=== PATIENT | female | born 1950 | race African-American/Black ===

== ENCOUNTER 2022-10-22 19:51 | Inpatient (IN) | payer BC, OTHER ==
[~2022-10-22] VITALS: Ht 175.3 cm; Wt 88.0 kg
[2022-10-22] MEDS ORDERED: MORPHINE SULFATE INJ 2 MG/ML DISP.SYRIN ONE (21:50)
[2022-10-22] MEDS ORDERED: MORPHINE SULFATE INJ 2 MG/ML DISP.SYRIN IV ONE (22:00)
[2022-10-22] MEDS ORDERED: IV NS 0.9% 1,000 ML BAG IV ONE (22:00)
[2022-10-22 22:20] LABS: BASOPHILS % (AUTO) 0.8 % (0.0-2.0); EOSINOPHILS # (AUTO) 0.1 K/uL (0.0-0.7); EOSINOPHILS % (AUTO) 2.3 % (0.0-6.0); HEMATOCRIT 32 % (33-45); HEMOGLOBIN 10.5 g/dL (11.5-14.8); LYMPHOCYTES # (AUTO) 0.6 K/uL (0.8-4.8); LYMPHOCYTES % (AUTO) 10.4 % (20.0-44.0); MEAN CORPUSCULAR HEMOGLOBIN 32 PG (26.0-33.0); MEAN CORPUSCULAR HGB CONC 33 g/dl (31.0-36.0); MEAN CORPUSCULAR VOLUME 97 fL (82-100); MONOCYTES # (AUTO) 0.5 K/uL (0.1-1.30); MONOCYTES % (AUTO) 9.6 % (2.0-12.0); NEUTROPHILS # (AUTO) 4.3 K/uL (1.8-8.9); NEUTROPHILS % (AUTO) 76.9 % (43.0-81.0); PLATELET COUNT (AUTO) 124 K/uL (150-450); RED BLOOD CELL COUNT(AUTO) 3.32 MIL/uL (4.0-5.2); RED CELL DISTRIBUTION WIDTH 17.8 % (11.5-15.0); WHITE BLOOD COUNT (AUTO) 5.6 K/uL (4.3-11.0)
[2022-10-22 22:32] LABS: CALCIUM, SERUM 8.5 mg/dL (8.5-10.1); CREATININE 0.8 mg/dL (0.6-1.3); POTASSIUM 3.9 mmol/L (3.5-5.1)
[2022-10-22 22:58] LABS: INR 1.24 (0.91-1.10); PARTIAL THROMBOPLASTIN TIME 25.1 SEC (24.3-34.3); PROTHROMBIN TIME 12.9 SECS (9.2-11.1)
[2022-10-22 23:13] LABS: APPEARANCE,URINE TURBID (CLEAR); BILIRUBIN,URINE 1+ (NEGATIVE); BLOOD, URINE TRACE-INTA Ery/uL (NEGATIVE); COLOR,URINE DARK YELLOW (YELLOW); KETONES,URINE 1+ mg/dL (NEGATIVE); LEUKOCYTE ESTERASE ,URINE 3+ (NEGATIVE); NITRITE, URINE POSITIVE (NEGATIVE); PH,URINE 7.5 (5.0-8.0); PROTEIN,URINE TRACE mg/dl (NEGATIVE); UGLUCOSE NEGATIVE (NEGATIVE); UROBILINOGEN,URINE >=8.0 EU/dL (0.2)
[2022-10-22 23:23] LABS: ADD URINE CULTURE YES; BACTERIA,URINE Moderate /HPF (None Seen); SQUAMOUS EPITHELIAL CELL,UR Rare /HPF (None Seen); WBC,URINE 51-80 /HPF (0-3)
[2022-10-23] MEDS ORDERED: CEFTRIAXONE 1GM BAG (ER ONLY) 1 GM/50 ML PIGGYBACK IV ONE
[2022-10-23] MEDS ORDERED: ZOLPIDEM TARTRATE 5 MG TABLET PO PRN (01:00)
[2022-10-23] MEDS ORDERED: Z GUARD REMEDY 4 OZ OINT TP PRN (01:00)
[2022-10-23] MEDS ORDERED: HYDROCODONE/APAP 10/325MG TABLET PO PRN (01:00)
[2022-10-23] MEDS ORDERED: MAG HYDROX/AL HYDROX/SIMETH 30 ML UDC PO PRN (01:00)
[2022-10-23] MEDS ORDERED: ONDANSETRON HCL/PF 4 MG/2 ML VIAL IVP PRN (01:00)
[2022-10-23] MEDS ORDERED: MAGNESIUM HYDROXIDE 30 ML UDC PO PRN (01:00)
[2022-10-23 03:00] VITALS: BP 115/61; TEMP 98.7; O2SAT 96
[2022-10-23] MEDS: IV NS 0.9% 1,000 ML IV PRN ×2 (03:28→14:38)
[2022-10-23] MEDS: MORPHINE SULFATE INJ 2 MG/ML DISP.SYRIN IV PRN ×4 (03:54→23:16)
[2022-10-23] MEDS ORDERED: LORA-259 PO (05:45)
[2022-10-23] MEDS ORDERED: DULO30CA2 PO (05:45)
[2022-10-23 08:00] VITALS: BP 137/78; TEMP 99.8; O2SAT 97
[2022-10-23] MEDS ORDERED: ESOM20CA37 PO (08:24)
[2022-10-23] MEDS ORDERED: TRAZ-252 PO (08:24)
[2022-10-23 10:42] LABS: IRON, SERUM 26 ug/dl (50-175); TOTAL IRON BINDING CAPACITY 291 ug/dl (250-450)
[2022-10-23] MEDS: DAKINS QUARTER STRENGTH (0.125%) 480 ML BOTTLE TOP SCH (10:55)
[2022-10-23] MEDS ORDERED: TRAZODONE 50 MG TABLET PO PRN (17:00)
[2022-10-23] MEDS ORDERED: LORAZEPAM 1 MG TABLET PO PRN (17:00)
[2022-10-23] MEDS ORDERED: MORPHINE SULFATE INJ 2 MG/ML DISP.SYRIN IV STA (17:36)
[2022-10-23 18:25] LABS: BASOPHILS % (AUTO) 0.7 % (0.0-2.0); EOSINOPHILS # (AUTO) 0.2 K/uL (0.0-0.7); EOSINOPHILS % (AUTO) 5.1 % (0.0-6.0); HEMATOCRIT 30 % (33-45); HEMOGLOBIN 9.8 g/dL (11.5-14.8); LYMPHOCYTES # (AUTO) 0.7 K/uL (0.8-4.8); LYMPHOCYTES % (AUTO) 15.5 % (20.0-44.0); MEAN CORPUSCULAR HEMOGLOBIN 32 PG (26.0-33.0); MEAN CORPUSCULAR HGB CONC 33 g/dl (31.0-36.0); MEAN CORPUSCULAR VOLUME 98 fL (82-100); MONOCYTES # (AUTO) 0.5 K/uL (0.1-1.30); MONOCYTES % (AUTO) 11.4 % (2.0-12.0); NEUTROPHILS % (AUTO) 67.3 % (43.0-81.0); PLATELET COUNT (AUTO) 112 K/uL (150-450); RED BLOOD CELL COUNT(AUTO) 3.08 MIL/uL (4.0-5.2); RED CELL DISTRIBUTION WIDTH 17.6 % (11.5-15.0); WHITE BLOOD COUNT (AUTO) 4.5 K/uL (4.3-11.0)
[2022-10-23 19:08] LABS: CALCIUM, SERUM 7.8 mg/dL (8.5-10.1); CREATININE 0.7 mg/dL (0.6-1.3); POTASSIUM 3.7 mmol/L (3.5-5.1)
[2022-10-23 19:22] LABS: THYROID STIMULATING HORMONE 3.231 uIU/mL (0.358-3.74)
[2022-10-23 20:00] VITALS: BP 118/95; TEMP 98.3; O2SAT 96
[2022-10-23 21:00] VITALS: BP 121/96; O2SAT 95
[2022-10-23] MEDS ORDERED: METOPROLOL TARTRATE INJ 5 MG/5 ML AMPUL IVP PRN (21:00)
[2022-10-23] MEDS: ENOXAPARIN SODIUM 40 MG/0.4 ML DISP.SYRIN SQ SCH (21:25)
[2022-10-23 22:00] VITALS: BP 131/99; O2SAT 94
[2022-10-23] MEDS ORDERED: METOPROLOL TARTRATE INJ 5 MG/5 ML AMPUL IVP ONE (22:00)
[2022-10-23 23:00] VITALS: BP 128/102; O2SAT 91
[2022-10-23] MEDS: CEFTRIAXONE 1 G in IV D5W 50 ML IV SCH (23:08)
[2022-10-23] MEDS ORDERED: AMIODARONE 150 MG/3 ML VIAL IV ONE ×2 (23:17→23:18)
[2022-10-23] MEDS ORDERED: AMIODARONE 150 MG in IV D5W 100 ML IV ONE (23:30)
[2022-10-23] MEDS: AMIODARONE 450 MG in IV D5W 241 ML IV PRN (23:33)
[2022-10-24] VITALS (19 sets, daily range): BP systolic 95–138; BP diastolic 70–92; TEMP 98–98.9; O2SAT 93–99
[2022-10-24] MEDS: IV NS 0.9% 1,000 ML IV PRN ×2 (03:05→18:23)
[2022-10-24] MEDS: MORPHINE SULFATE INJ 2 MG/ML DISP.SYRIN IV PRN ×5 (04:11→22:45)
[2022-10-24 04:22] LABS: BASOPHILS % (AUTO) 0.9 % (0.0-2.0); EOSINOPHILS # (AUTO) 0.2 K/uL (0.0-0.7); HEMATOCRIT 30 % (33-45); HEMOGLOBIN 9.8 g/dL (11.5-14.8); LYMPHOCYTES # (AUTO) 0.7 K/uL (0.8-4.8); MEAN CORPUSCULAR HEMOGLOBIN 32 PG (26.0-33.0); MEAN CORPUSCULAR HGB CONC 32 g/dl (31.0-36.0); MEAN CORPUSCULAR VOLUME 97 fL (82-100); MONOCYTES # (AUTO) 0.5 K/uL (0.1-1.30); MONOCYTES % (AUTO) 11.3 % (2.0-12.0); NEUTROPHILS # (AUTO) 2.9 K/uL (1.8-8.9); NEUTROPHILS % (AUTO) 66.8 % (43.0-81.0); PLATELET COUNT (AUTO) 105 K/uL (150-450); RED BLOOD CELL COUNT(AUTO) 3.11 MIL/uL (4.0-5.2); RED CELL DISTRIBUTION WIDTH 17.5 % (11.5-15.0); WHITE BLOOD COUNT (AUTO) 4.4 K/uL (4.3-11.0)
[2022-10-24 04:46] LABS: CALCIUM, SERUM 7.9 mg/dL (8.5-10.1); CREATININE 0.6 mg/dL (0.6-1.3); MAGNESIUM 1.3 mg/dL (1.8-2.4); PHOSPHORUS 2.7 mg/dL (2.5-4.9)
[2022-10-24] MEDS: AMIODARONE 450 MG in IV D5W 241 ML IV PRN ×2 (07:19→15:01)
[2022-10-24] MEDS: PANTOPRAZOLE 40 MG TABLET.DR PO SCH (08:05)
[2022-10-24] MEDS: DULOXETINE HCL 30 MG CAPSULE.DR PO SCH ×2 (08:05→08:20)
[2022-10-24] MEDS: DAKINS QUARTER STRENGTH (0.125%) 480 ML BOTTLE TOP SCH (09:09)
[2022-10-24] MEDS: Magnesium 1GM/D5W 100ML PREMIX 100 ML IV SCH ×4 (09:52→13:29)
[2022-10-24] MEDS: ENOXAPARIN SODIUM 40 MG/0.4 ML DISP.SYRIN SQ SCH (21:33)
[2022-10-24] MEDS ORDERED: CEFTRIAXONE 1GM BAG (ER ONLY) 50 ML IV ONE (23:47)
[2022-10-24] MEDS: CEFTRIAXONE 1 G in IV D5W 50 ML IV SCH (23:48)
[2022-10-25] VITALS: BP 130/80; TEMP 98.8; O2SAT 96
[2022-10-25 04:00] VITALS: BP 128/67; TEMP 98.8; O2SAT 96
[2022-10-25 06:45] LABS: CALCIUM, SERUM 7.9 mg/dL (8.5-10.1); CREATININE 0.7 mg/dL (0.6-1.3); MAGNESIUM 1.6 mg/dL (1.8-2.4); POTASSIUM 3.5 mmol/L (3.5-5.1)
[2022-10-25 08:00] VITALS: BP 145/88; TEMP 98.2; O2SAT 99
[2022-10-25] MEDS: PANTOPRAZOLE 40 MG TABLET.DR PO SCH (08:04)
[2022-10-25] MEDS: IV NS 0.9% 1,000 ML IV PRN (08:05)
[2022-10-25] MEDS: DULOXETINE HCL 30 MG CAPSULE.DR PO SCH ×2 (08:05→08:19)
[2022-10-25] MEDS: Magnesium 1GM/D5W 100ML PREMIX 100 ML IV SCH ×4 (08:43→12:25)
[2022-10-25] MEDS: MORPHINE SULFATE INJ 2 MG/ML DISP.SYRIN IV PRN ×3 (08:44→20:58)
[2022-10-25] MEDS: DAKINS QUARTER STRENGTH (0.125%) 480 ML BOTTLE TOP SCH (08:57)
[2022-10-25 12:00] VITALS: BP 142/82; TEMP 98.5; O2SAT 99
[2022-10-25 16:00] VITALS: BP 138/76; TEMP 98.4; O2SAT 99
[2022-10-25 20:00] VITALS: BP 137/90; TEMP 98.2; O2SAT 98
[2022-10-25] MEDS: ENOXAPARIN SODIUM 40 MG/0.4 ML DISP.SYRIN SQ SCH (21:22)
[2022-10-26] VITALS: BP 126/82; TEMP 98; O2SAT 97
[2022-10-26] MEDS: CEFTRIAXONE 1 G in IV D5W 50 ML IV SCH ×2 (00:30→23:39)
[2022-10-26 04:00] VITALS: BP 136/83; TEMP 98; O2SAT 98
[2022-10-26] MEDS: MORPHINE SULFATE INJ 2 MG/ML DISP.SYRIN IV PRN ×3 (07:47→22:42)
[2022-10-26] MEDS: PANTOPRAZOLE 40 MG TABLET.DR PO SCH (07:47)
[2022-10-26 08:00] VITALS: BP 142/89; TEMP 98.6; O2SAT 98
[2022-10-26] MEDS: DULOXETINE HCL 30 MG CAPSULE.DR PO SCH ×2 (09:00→09:25)
[2022-10-26] MEDS: DAKINS QUARTER STRENGTH (0.125%) 480 ML BOTTLE TOP SCH (09:23)
[2022-10-26 12:00] VITALS: BP 142/89; TEMP 98.5; O2SAT 99
[2022-10-26 16:00] VITALS: BP 142/89; TEMP 209.3; TEMP 98.5; O2SAT 99
[2022-10-26 20:00] VITALS: BP 136/81; TEMP 97.8; O2SAT 98
[2022-10-26] MEDS: ENOXAPARIN SODIUM 40 MG/0.4 ML DISP.SYRIN SQ SCH (21:29)
[2022-10-26] MEDS: IV NS 0.9% 1,000 ML IV PRN (23:44)
[2022-10-27] VITALS (9 sets, daily range): BP systolic 101–133; BP diastolic 70–85; TEMP 97.3–98.8; O2SAT 96–99
[2022-10-27] MEDS: ACETAMINOPHEN 325 MG TABLET PO PRN (00:50)
[2022-10-27] MEDS: PANTOPRAZOLE 40 MG TABLET.DR PO SCH (08:48)
[2022-10-27] MEDS: DULOXETINE HCL 30 MG CAPSULE.DR PO SCH (08:53)
[2022-10-27] MEDS: MORPHINE SULFATE INJ 2 MG/ML DISP.SYRIN IV PRN ×3 (09:43→20:26)
[2022-10-27] MEDS ORDERED: AMIODARONE 150 MG in IV D5W 100 ML IV ONE (14:00)
[2022-10-27] MEDS: DAKINS QUARTER STRENGTH (0.125%) 480 ML BOTTLE TOP SCH (14:20)
[2022-10-27 14:28] LABS: CALCIUM, SERUM 7.5 mg/dL (8.5-10.1); CREATININE 0.7 mg/dL (0.6-1.3); POTASSIUM 3.5 mmol/L (3.5-5.1)
[2022-10-27] MEDS: METOPROLOL TARTRATE 25 MG TABLET PO SCH ×2 (14:30→20:25)
[2022-10-27 14:33] LABS: MAGNESIUM 1.1 mg/dL (1.8-2.4)
[2022-10-27] MEDS ORDERED: POTASSIUM CHLORIDE 20 MEQ TAB.PRT.SR PO ONE (15:00)
[2022-10-27] MEDS: AMIODARONE 450 MG in IV D5W 241 ML IV PRN ×2 (15:11→22:50)
[2022-10-27] MEDS: Magnesium 1GM/D5W 100ML PREMIX 100 ML IV SCH ×4 (15:28→18:39)
[2022-10-27] MEDS: ENOXAPARIN SODIUM 40 MG/0.4 ML DISP.SYRIN SQ SCH (20:24)
[2022-10-27 20:40] LABS: MAGNESIUM 2.1 mg/dL (1.8-2.4); POTASSIUM 4.2 mmol/L (3.5-5.1)
[2022-10-27] MEDS: CEFTRIAXONE 1 G in IV D5W 50 ML IV SCH (23:28)
[2022-10-28] VITALS: BP 117/72; TEMP 98.7; O2SAT 98
[2022-10-28] MEDS: MORPHINE SULFATE INJ 2 MG/ML DISP.SYRIN IV PRN ×4 (00:31→20:28)
[2022-10-28] MEDS: IV NS 0.9% 1,000 ML IV PRN ×2 (03:27→14:56)
[2022-10-28 04:00] VITALS: BP 122/72; TEMP 98.6; O2SAT 96
[2022-10-28] MEDS: PANTOPRAZOLE 40 MG TABLET.DR PO SCH (07:42)
[2022-10-28 08:00] VITALS: BP 122/77; TEMP 98.6; O2SAT 100
[2022-10-28] MEDS: DAKINS QUARTER STRENGTH (0.125%) 480 ML BOTTLE TOP SCH (08:47)
[2022-10-28] MEDS: METOPROLOL TARTRATE 25 MG TABLET PO SCH ×2 (09:12→20:32)
[2022-10-28] MEDS: DULOXETINE HCL 30 MG CAPSULE.DR PO SCH (09:12)
[2022-10-28 12:00] VITALS: BP 118/15; TEMP 98.6; O2SAT 100
[2022-10-28 16:00] VITALS: BP 114/74; TEMP 98.9; O2SAT 98
[2022-10-28 20:00] VITALS: BP 121/74; TEMP 98.8; O2SAT 99
[2022-10-28] MEDS: ENOXAPARIN SODIUM 40 MG/0.4 ML DISP.SYRIN SQ SCH (20:27)
[2022-10-28] MEDS: CEFTRIAXONE 1 G in IV D5W 50 ML IV SCH (23:26)
[2022-10-29] VITALS: BP 130/73; TEMP 98.7; O2SAT 99
[2022-10-29] MEDS: MORPHINE SULFATE INJ 2 MG/ML DISP.SYRIN IV PRN ×4 (00:33→21:30)
[2022-10-29] MEDS: IV NS 0.9% 1,000 ML IV PRN ×2 (02:43→19:52)
[2022-10-29 04:00] VITALS: BP 109/85; TEMP 98.8; O2SAT 100
[2022-10-29 08:00] VITALS: BP 134/87; TEMP 98.9; O2SAT 99
[2022-10-29] MEDS: DULOXETINE HCL 30 MG CAPSULE.DR PO SCH (08:40)
[2022-10-29] MEDS: PANTOPRAZOLE 40 MG TABLET.DR PO SCH (08:43)
[2022-10-29] MEDS: METOPROLOL TARTRATE 25 MG TABLET PO SCH ×2 (08:44→21:26)
[2022-10-29] MEDS: DAKINS QUARTER STRENGTH (0.125%) 480 ML BOTTLE TOP SCH (08:51)
[2022-10-29 16:00] VITALS: BP 116/66; TEMP 100.6; O2SAT 95
[2022-10-29] MEDS: ACETAMINOPHEN 325 MG TABLET PO PRN (18:26)
[2022-10-29 20:00] VITALS: BP 138/69; TEMP 101.2; O2SAT 98
[2022-10-29] MEDS: ENOXAPARIN SODIUM 40 MG/0.4 ML DISP.SYRIN SQ SCH (21:26)
[2022-10-30] VITALS: BP 118/65; TEMP 97.8; O2SAT 97
[2022-10-30] MEDS: CEFTRIAXONE 1 G in IV D5W 50 ML IV SCH (00:07)
[2022-10-30 04:00] VITALS: BP 134/69; TEMP 98.8; O2SAT 98
[2022-10-30] MEDS: MORPHINE SULFATE INJ 2 MG/ML DISP.SYRIN IV PRN ×2 (04:24→09:17)
[2022-10-30] MEDS: IV NS 0.9% 1,000 ML IV PRN (06:28)
[2022-10-30 08:00] VITALS: BP 128/67; TEMP 98.7; O2SAT 100
[2022-10-30] MEDS: PANTOPRAZOLE 40 MG TABLET.DR PO SCH (08:18)
[2022-10-30] MEDS: DULOXETINE HCL 30 MG CAPSULE.DR PO SCH ×2 (08:18→08:24)
[2022-10-30] MEDS: DAKINS QUARTER STRENGTH (0.125%) 480 ML BOTTLE TOP SCH (08:18)
[2022-10-30] MEDS: METOPROLOL TARTRATE 25 MG TABLET PO SCH (08:18)
[2022-10-30] MEDS ORDERED: DOXY-326 PO (11:49)
[2022-10-30] MEDS ORDERED: OXYC-128 PO (11:49)
[2022-10-30 12:00] VITALS: BP 136/64; TEMP 98.5; O2SAT 100
[2022-10-30] MEDS ORDERED: oxyCODONE/APAP (5/325 MG) 1 UDTAB TABLET PO PRN (12:00)
[2022-10-30] MEDS ORDERED: DOXYCYCLINE HYCLATE (100 MG) 100 MG TABLET PO SCH (12:00)
[2022-10-30 13:32] LABS: CALCIUM, SERUM 8.1 mg/dL (8.5-10.1); CREATININE 0.6 mg/dL (0.6-1.3); MAGNESIUM 1.4 mg/dL (1.8-2.4); POTASSIUM 3.6 mmol/L (3.5-5.1)
[2022-10-30] MEDS ORDERED: POTASSIUM CHLORIDE 20 MEQ TAB.PRT.SR PO ONE (14:00)
[2022-10-30] MEDS ORDERED: METO25TA20 PO (14:11)
[2022-10-30] MEDS: Magnesium 1GM/D5W 100ML PREMIX 100 ML IV SCH ×2 (14:59→15:59)
[2022-10-30 16:00] VITALS: BP 129/68; TEMP 98.8; O2SAT 100
[2022-10-30] MEDS ORDERED: MAGNESIUM OXIDE 400 MG TABLET PO SCH (22:00)
== END 2022-10-30 19:43 | DRG 543 ==
LOC: ER 19:53 → MED 10-23 01:07 → ICU 10-23 19:10 → TELE-TD 10-24 16:20 → TELE1 10-25 13:40 → TELE-TD 10-27 14:01 → TELE1 10-30 09:43
PROVIDERS: ADMIT Internal Medicine; ATTEND Nurse Practitioner Family
DX: M48.56XA Collapsed vertebra, not elsewhere classified, lumbar region, initial encounter for fracture (principal); I47.1 Supraventricular tachycardia; L03.113 Cellulitis of right upper limb; S42.211A Unspecified displaced fracture of surgical neck of right humerus, initial encounter for closed fracture; N39.0 Urinary tract infection, site not specified; F32.A Depression, unspecified; D63.8 Anemia in other chronic diseases classified elsewhere; R29.6 Repeated falls; I48.91 Unspecified atrial fibrillation; W01.0XXA Fall on same level from slipping, tripping and stumbling without subsequent striking against object, initial encounter; Y93.9 Activity, unspecified; Y92.009 Unspecified place in unspecified non-institutional (private) residence as the place of occurrence of the external cause; R22.9 Localized swelling, mass and lump, unspecified; B96.20 Unspecified Escherichia coli [E. coli] as the cause of diseases classified elsewhere
CPT/HCPCS: 36415; 70450-TC; 72125-TC; 72128-TC; 72131-TC; 73030-TC; 73060-TC; 80048-TC; 81001; 82550-TC; 83540-TC; 83735-TC; 84100-TC; 84132-TC; 84443-TC; 85025-TC; 85730-TC; 87081-TC; 87086-TC; 93307-TC; 93971-TC; 97110-TC; 97112-TC; 97116-TC; 97530-TC; 97535-TC; A4223; A4565; A6403; G0378; J0282; J0696; J1650; J2270; J3475; J3490; J7030; J7060